=== PATIENT | female | born 1985 | race Caucasian/White ===

== ENCOUNTER 2021-02-07 08:23 | Day surgery (SDC) | payer OTHER, SELFPAY ==
[2021-02-06 13:13] VITALS: BMI 22.4
--- NOTE | 2021-02-07 08:41 | ANES.PREANE2 ---
Pre-Anesthetic Assessment Pre-Anesthetic Assessment: Height/Weight: Height 1.65 m Weight 61.235 kg Preop Diagnosis: gerd Proposed Procedure: Operation Date: 02/07/21 10:00 Proposed Procedures p EGD 55330 K21.9(Not Applicable) - Lex Bianchi MD Familial anesthetic complications: NOne Was Beta Marlene taken within 24 hours: N/A Was Clonidine taken within 24 hours: N/A Last intake: > 8 hrs Social: Social History: Alcohol and No tobacco Comment: glass of wine every other night Exam: Pre-Anes Outpt Exam: alert, oriented x 3, clear to auscultation bilaterally and regular rate & rhythm Airway: Cervical ROM: WNL MP: 2 Dentition: Full GI: GI: GERD and PUD Anesthetic Plan: ASA status: 1 Anesthesia: MAC Risk of > 500 ml blood loss (7ml/kg in children): No PFSH Anesthesia PFSH: Family History Grandmother CAD (coronary artery disease) Hypertension Stroke Family/Other Cancer Denies family history of Diabetes Social History Smoking and tobacco status: never smoked Alcohol intake: current Alcohol intake frequency: few times a week Lives independently: Yes Household members: children Female Reproductive History: Date of last menstrual period: 01/23/21 Data Anesthesia Cardiac Studies: No Data to Display
--- NOTE | 2021-02-07 10:10 | PC.NURSE ---
\neck and shoulder pain, rates 3, constant, goes to chiropractor, participates in yoga and meditation.
[2021-02-07] MEDS: sodium chloride 0.9% 1,000 ML 30 ML IV (10:29)
[2021-02-07 10:36] LABS: OR HCG Qualitative Urine Negative (Negative)
--- NOTE | 2021-02-07 10:41 | W.PM.OPSFHP ---
Same Day Surgery H&P Indication for Procedure/HPI DATE OF PROCEDURE: February 07, 2021 CHIEF COMPLAINT/INDICATIONFOR SURGICAL PROCEDURE: My matt magaña PREOP DIAGNOSIS: Anorexia and abdominal pain PLANNED PROCEDRUE: Operation Date: 02/07/21 10:00 Proposed Procedures p EGD 52601 K21.9(Not Applicable) - Lex Bianchi MD This is a pleasant 35 years old female patient presents to my practice with history of worsening Sharpepigastric pain that sometimes referred to the back and often times she reports chills, nausea and some vomiting but no hematemesis or bleeding per rectum. Seems that proton pump inhibitors helps some but not always. Patient reports that she never had endoscopies before and she was referred to me because of concern of peptic ulcer disease. Also patient reports that she has concern of history of celiac disease but that was not diagnosed based on biopsies. But she continues to be on a gluten-free diet and watches her food. Patient gives anorexic symptoms. She also reports to me that she has been moving and lifting a lot of objects and experiencing musculoskeletal pain which requires intake of NSAIDs but she was not aware if she did a lot of thatWhich could have precipitated a peptic ulcer disease. Interim history 02/07/2021 Patient comes today for diagnostic EGD ROS All systems have been reviewed negative except as per the above or per problem list Medications/Allergies* Home Medications Medication Instructions Recorded Confirmed Type norgestimate 0.25 mg-ethinyl 1 tab PO DAILY 12/28/20 02/06/21 History estradiol 35 mcg tablet omeprazole magnesium 2.5 mg oral 10 mg PO DAILY 12/28/20 02/06/21 History suspension,delayed release Allergies/Adverse Reactions Allergy/AdvReac Type Severity Reaction Status Date / Time gluten Allergy Mild muscle pain Verified 02/07/21 10:42 Current Medications: Generic Name Dose Route Start Last Admin Trade Name Freq PRN Reason Stop Dose Admin Sodium Chloride 1,000 mls @ 30 mls/hr 02/07/21 09:15 02/07/21 10:29 Sodium Chloride 0.9% IV 02/08/21 09:14 30 mls/hr .Q24H NITESH Administration Pertinent History/Comorbid Conditions* Family History (Updated 12/28/20 @ 14:54 by Sheridan Sanders) CAD (coronary artery disease) Grandmother Cancer Family/Other Hypertension Grandmother Stroke Grandmother Denies family history of Diabetes Social History Smoking and tobacco status: never smoked Alcohol intake: current Alcohol intake frequency: few times a week Lives independently: Yes Household members: children Pertinent Exam Findings alert, oriented x 3, clear to auscultation bilaterally, regular rate & rhythm and procedure specific exam findings (Abdominal examination less tender epigastric area otherwise soft no guardin) Recommendations Surgery/Procedure today (Diagnostic EGD) Other Plans: Plan of care; After thorough history and physical examination and reviewing the chart, plan to perform a diagnostic esophagogastroduodenoscopy with possible biopsy in the GI lab. I discussed with the patient in detail the risk,benefits,alternatives and indications.The risk of aspiration, bleeding, soft tissue injury, perforation of the stomach/esophagus and other potential concomitant complications were explained to the patient in details,aslo the potential need for Thoracic and or Abdominal surgery to repair any complications.The patient understood this well and did agree to proceed. Rationale was carefully and clearly discussed with the patient.Appropriate informed consent have been reviewed and signed All questions have been answered and all concerns have been addressed to patient's satisfaction. Coding Level of Care Code Acute Computational Physicist for Reese Ramos
[2021-02-07 11:37] VITALS: BP 112/62; PULSE 81; RESP 20; TEMP 36.4; O2SAT 99
--- NOTE | 2021-02-07 11:37 | ANE.PACU2 ---
Inpatient post-anesthesia follow up: Airway intact: Yes Vital signs: Temperature Pulse Rate Respiratory Rate Blood Pressure Pulse Oximetry Oxygen Delivery Me thod Oxygen Flow Rate Fraction of Inspir ed Oxygen Hydration adequate: Yes Nausea and vomiting: No Pain level: 1 Mental status: Baseline
[2021-02-07 11:49] VITALS: BP 109/73; PULSE 66; RESP 18; TEMP 36.7; O2SAT 99
[2021-02-08 06:30] LABS: H. Pylori / CLO Test Negative
== END 2021-02-07 12:13 | disposition home or self-care (01) ==
PROVIDERS: Anesthesiology; PCP Nurse Practitioner Family; Visit Provider Surgery
PROC: 0DJ08ZZ Inspection of Upper Intestinal Tract, Via Natural or Artificial Opening Endoscopic (ICD-10-PCS; CPT 43235; principal; 2021-02-07 10:00)
DX: R10.9 Unspecified abdominal pain (principal); R63.0 Anorexia; Z82.49 Family history of ischemic heart disease and other diseases of the circulatory system; K21.9 Gastro-esophageal reflux disease without esophagitis; K44.9 Diaphragmatic hernia without obstruction or gangrene; K29.70 Gastritis, unspecified, without bleeding; K22.8 Other specified diseases of esophagus; Z87.11 Personal history of peptic ulcer disease
CPT/HCPCS: 43239; 81025; 84703; 87077; 88305; 96360; 96361; J2704; J7030

== ENCOUNTER 2023-02-14 18:38 | Emergency (ER) | payer OTHER, SELFPAY ==
[2023-02-14 18:51] VITALS: BP 107/73; PULSE 88; RESP 16; TEMP 36.7; O2SAT 100
--- NOTE | 2023-02-14 18:55 | W.ED.PSYCHS ---
HPI - Psych General: Chief Complaint: Psychiatric Symptoms Stated Complaint: panic attacks, MHE Time Seen by Provider: 02/14/23 18:55 History of Present Illness: Ms. Arambula is a 38-year-old lady presented the emergency department for panic attack type symptoms. She does report a history of probable panic attacks and is currently on Celexa which had been helping. Lately though, without known specific provoking factors, she has had worsening symptoms. She describes to severe panic attacks over the past few days. She notes sudden onset of racing heart and pounding headache as well as vomiting and chest discomfort/shortness of breath. These typically last a few hours. Denies suicidal or homicidal thoughts. No other specific changes in health, exacerbating, or alleviating factors identified. History of same: Yes Associated psychiatric symptoms: other Review of Systems General: Reports: 10 or more systems reviewed and unremarkable except in HPI and below PFSH ED PFSH: Medical History Esophageal polyp Hiatal hernia Family History Grandmother CAD (coronary artery disease) Hypertension Stroke Family/Other Cancer Denies family history of Diabetes Social History Smoking and tobacco status: never smoked Alcohol intake: current Alcohol intake frequency: few times a week Substance/Drug Use: never Lives independently: Yes Household members: children Physical Exam Const: COMMON NORMALS: alert GENERAL APPEARANCE: cooperative and well developed HENMT: COMMON NORMALS: normocephalic and atraumatic HEAD & SCALP: normocephalic and atraumatic Eye: COMMON NORMALS: conjunctivae normal CONJUNCTIVA: Yes conjunctivae normal SCLERA: sclerae normal Neck/C-Spine: COMMON NORMALS: supple GENERAL: Yes trachea midline Resp: COMMON NORMALS: normal respiratory effort EFFORT & INSPECTION: Yes able to speak in complete sentences Cardio: COMMON NORMALS: regular rate and regular rhythm RATE: regular rate RHYTHM: regular rhythm GI: COMMON NORMALS: Soft to palpation PALPATION: Yes Soft to palpation and No Tenderness to palpation present (GI) PERCUSSION: normal to percussion Extremity: GENERAL: Yes normal exam except as noted and No edema Neuro: COMMON NORMALS: moves all extremities SENSORIUM/ORIENTATION: Yes alert and No Orientation impaired Psych: COMMON NORMALS: mental status grossly normal, Normal thought process present, denies hallucinations, denies homicidal ideation and denies suicidal ideation THOUGHT PROCESS: Normal thought process present Course Vital Signs: Vital signs: Vital Signs Temperature 98.0 F 02/14/23 18:51 Pulse Rate 88 02/14/23 18:51 Respiratory Rate 16 02/14/23 18:51 Blood Pressure 107/73 02/14/23 18:51 Pulse Oximetry 100 02/14/23 18:51 Oxygen Delivery Me thod Room Air 02/14/23 18:51 MDM - Psych Medical Decision Making 38-year-old lady presenting for likely panic attacks. Calm and cooperative. Nontoxic. EKG demonstrates sinus rhythm with normal axis and intervals, no STEMI. Labs with mild leukocytosis, normal hemoglobin and platelet count. Metabolic panel with perhaps mild dehydration. Toxic ingestions negative. Indication for imaging this time. I will prescribe hydroxyzine as first-line and clonazepam as second line. Patient does not feel the need to be hospitalized at this time. Not suicidal homicidal ideation. The results of ED evaluation were discussed with the patient including prescriptions and/or symptomatic cares (if applicable) including appropriate and responsible use, followup plan, and return precautions. The patient verbalized understanding and felt safe for discharge. Medical Records I reviewed the patient's medical records. Lab Data I reviewed the patient's lab results. 02/14/23 19:27 02/14/23 19: Laboratory Results WBC 12.4 10^3/uL (4.0-10.0) H 02/14/23 19: RBC 4.27 10^6/uL (4.1-5.3) 02/14/23 19: Hgb 12.6 g/dL (11.5-15.3) 02/14/23 19: Hct 39.4 % (37.0-47.0) 02/14/23 19: MCV 92.3 fl (81-99) 02/14/23 19: MCH 29.5 pg (28.0-34.0) 02/14/23 19: MCHC 32.0 g/dL (30.0-36.0) 02/14/23 19: RDW 11.8 % (12.1-15.1) L 02/14/23: Plt Count 230 10^3/cmm (130-400) 02/14/23 19: MPV 11.0 fL (7.4-10.4) H 02/14/23 19:27 Neut % (Auto) 75.0 % 02/14/23 19: Lymph % (Auto) 16.4 % 02/14/23 19: [place] % (Auto) 7.0 % 02/14/23 19: Eos % (Auto) 0.7 % 02/14/23 19: Baso % (Auto) 0.4 % 02/14/23: Neut # (Auto) 9.28 10^3/uL (1.8-7.7) H 02/14/23: Lymph # (Auto) 2.0 10^3/uL (0.8-4.8) 02/14/23: [place] # (Auto) 0.9 10^3/uL (0.2-0.9) 02/14/23: Eos # (Auto) 0.1 10^3/uL (0.0-0.8) 02/14/23: Baso # (Auto) 0.1 10^3/uL (0.0-0.1) 02/14/23: Nucleated RBC % (auto) 0 % 02/14/23: Nucleated RBCs # 0.0 /100WBC 02/14/23: Sodium 133 mmol/L (136-145) L 02/14/23: Potassium 4.0 mmol/L (3.5-5.1) 02/14/23: Chloride 101 mmol/L (98-107) 02/14/23: Carbon Dioxide 23 mmol/L (22-29) 02/14/23: Anion Gap 13.0 (5-19) 02/14/23: BUN 12 mg/dL (6-20) 02/14/23: Creatinine 0.7 mg/dL (0.5-0.9) 02/14/23: GFR Calculation 94.2 mL/min (90-130) 02/14/23: Glucose 107 mg/dL (65-115) 02/14/23 19:27 Calculated Osmolality 276 mOsm/kg (285-295) L 02/14/23 19:27 Calcium 8.6 mg/dL (8.5-10.5) 02/14/23 19:27 Total Bilirubin 0.2 mg/dL (0.15-1.2) 02/14/23 19:27 AST 21 U/L (0-32) 02/14/23 19:27 ALT 22 U/L (0-33) 02/14/23 19:27 Alkaline Phosphatase 45 U/L (35-105) 02/14/23 19:27 Total Protein 6.3 g/dL (6.6-8.7) L 02/14/23 19:27 Albumin 4.0 g/dL (3.5-5.2) 02/14/23 19:27 Globulin 2.3 g/dL (1.3-4.6) 02/14/23 19:27 TSH 3.09 uIU/mL (0.27-4.20) 02/14/23 19:27 Salicylates < 0.3 mg/dL (3-10) L 02/14/23 19:27 Acetaminophen 6.5 ug/mL (10-30) L 02/14/23 19:27 Ethyl Alcohol < 10 mg/dL (0-10) 02/14/23 19:27 Discharge Plan Discharge Patient Disposition: Home Clinical Impression: Acute anxiety, Panic disorder Condition: Stable Prescriptions: New hydroxyzine HCl 25 mg tablet 25 mg PO Q6H PRN (Reason: anxiety) Qty: 30 0RF Klonopin 0.5 mg tablet 0.5 mg PO Q8H PRN (Reason: anxiety) Qty: 20 0RF No Action norgestimate-ethinyl estradiol [Sprintec (28)] 0.25-35 mg-mcg tablet 1 tab PO DAILY Protonix 40 mg tablet,delayed release (DR/EC) 40 mg PO DAILY 30 Days Qty: 30 2RF Discharge Orders: Discharge ED (Routine); Ordered 02/14/23 Ordered By: Maximiliano Friend Referrals: Chio Gauthier, INSTRUMENT TECHNICIAN HELPER [Primary Care Provider] - Discharge Diet: Usual diet Discharge Activity: Resume usual activity Patient Instructions: Clonazepam (By mouth), Hydroxyzine (By mouth), Panic Attack (ED) Activity Restrictions/Additional Instructions: Thank you for visiting the emergency department. You were seen and evaluated for likely panic attacks. The exact cause of these is unclear however does not appear to need hospitalization at this time. I will prescribe hydroxyzine as a first-line treatment and clonazepam as second line. Use these cautiously as discussed. [facility] [phone] If you or someone you care for is experiencing a psychiatric emergency, please call the crisis hotline ([email or web address]) 24-hours a day, 7 days a week at [phone]. The crisis stabilization center is located on the south side ([address]) of the hospital campus and has walk-in hours 11 AM to 9 PM daily. Please follow-up with your primary care provider. Return to the emergency department for uncontrolled symptoms, suicidal or homicidal thoughts, or anything that you are concerned about and feel needs emergency department evaluation. Coding Level of Care Code ED Supervisor [employer] for Reese Ramos
--- NOTE | 2023-02-14 19:09 | ECG_ITS ---
[facility] Test Date: 2023-02-14 Pat Name: Padma Arambula Department: Room: Gender: Female Cook Helper Preserves: : 1985 Requested By: Maximiliano Friend Order Number: [id number] Ramakrishna MD: Davie Acharya M.D. Measurements Intervals [place] Rate: 77 P: 73 WA: 130 QRS: 81 QRSD: 88 T: 62 QT: 373 QTc: 423 Interpretive Statements SINUS RHYTHM POSSIBLE LEFT ATRIAL ENLARGEMENT [-0.1mV P-WAVE IN V1/V2] MODERATE ST DEPRESSION [0.05+ mV ST DEPRESSION] No previous ECG available for comparison Electronically Signed On 02-15-2023 10:24:43 CDT by Davie Acharya M.D. [email or web address]
[2023-02-14 19:42] LABS: Basophils # 0.1 10^3/uL (0.0-0.1); Basophils % 0.4 %; Eosinophils # 0.1 10^3/uL (0.0-0.8); Eosinophils % 0.7 %; Hematocrit 39.4 % (37.0-47.0); Hemoglobin 12.6 g/dL (11.5-15.3); Lymphocytes % 16.4 %; Mean Corpuscular Hemoglobin 29.5 pg (28.0-34.0); Mean Corpuscular Volume 92.3 fl (81-99); Monocytes # 0.9 10^3/uL (0.2-0.9); Neutrophils # 9.28 10^3/uL (1.8-7.7); Nucleated Red Blood Cells % 0 %; Platelet Count 230 10^3/cmm (130-400); Red Blood Count 4.27 10^6/uL (4.1-5.3); Red Cell Distribution Width 11.8 % (12.1-15.1); White Blood Count 12.4 10^3/uL (4.0-10.0)
[2023-02-14 20:11] LABS: Acetaminophen 6.5 ug/mL (10-30); Alanine Aminotransferase 22 U/L (0-33); Alcohol Level < 10 mg/dL (0-10); Alkaline Phosphatase 45 U/L (35-105); Aspartate Amino Transferase 21 U/L (0-32); Blood Urea Nitrogen 12 mg/dL (6-20); Calcium 8.6 mg/dL (8.5-10.5); Carbon Dioxide 23 mmol/L (22-29); Chloride 101 mmol/L (98-107); Globulin 2.3 g/dL (1.3-4.6); Glomerular Filtration Rate 94.2 mL/min (90-130); Glucose 107 mg/dL (65-115); Osmolality Calculated 276 mOsm/kg (285-295); Salicylate < 0.3 mg/dL (3-10); Sodium 133 mmol/L (136-145); Thyroid Stimulating Hormone 3.09 uIU/mL (0.27-4.20); Total Bilirubin 0.2 mg/dL (0.15-1.2); Total Protein 6.3 g/dL (6.6-8.7)
== END 2023-02-14 21:00 | disposition home or self-care (01) ==
PROVIDERS: Emergency Provider Emergency Medicine; PCP Nurse Practitioner Family
DX: F41.0 Panic disorder [episodic paroxysmal anxiety] (principal); F41.9 Anxiety disorder, unspecified
CPT/HCPCS: 36415; 80053; 80307; 84443; 85025; 93005; 99284

== ENCOUNTER 2023-02-19 10:57 | Outpatient (CLI) | payer OTHER, SELFPAY ==
--- NOTE | 2023-02-19 11:07 | XRR_ITS ---
PROCEDURE INFORMATION: Exam: XR Cervical Spine Exam date and time: 02/19/2023 11:16 AM Age: 38 years old Clinical indication: Pain; Cervicalgia; Additional info: Cervicalgia/headache TECHNIQUE: Imaging protocol: Radiologic exam of the cervical spine. Views: 6 or more views. COMPARISON: No relevant prior studies available. FINDINGS: Bones/joints: Normal. No acute fracture. Normal alignment. The examination is negative for instability with flexion and extension maneuvers. Soft tissues: Unremarkable. XR/XR cervical spine min 6V [id number] IMPRESSION: No acute findings. Negative for instability with flexion and extension
== END 2023-02-19 10:58 | disposition home or self-care (01) ==
PROVIDERS: PCP Nurse Practitioner Family; Visit Provider Nurse Practitioner Family
DX: R51.9 Headache, unspecified (principal)
CPT/HCPCS: 72052

== ENCOUNTER 2023-03-07 11:29 | Emergency (ER) | payer OTHER, SELFPAY ==
[2023-03-07] VITALS (14 sets, daily range): BP systolic 95–143; BP diastolic 67–92; PULSE 61–96; RESP 13–25; TEMP 36.7; O2SAT 96–100; BMI 23.3
--- NOTE | 2023-03-07 11:30 | ED_ITS ---
Documented by User: Brown Peterson DO 03/09/23 08:07 HPI - Headache General: Chief Complaint: Headache Stated Complaint: headache Time Seen by Provider: 03/07/23 11:29 Source: patient Mode of arrival: EMS History of Present Illness: 38-year-old female presents emergency room complaining primarily of headache. She is also had a little difficult time with her swallowing and she has noticed some double vision the double vision seems to come and go she has had some mild dizziness as well. Dizziness slightly worsened when she moves her head. She is somewhat nauseous. She has difficult time at times swallowing saliva. She is not previously had headaches like this before. No fever sweats or chills recently no head injury. Began a few hours ago. She is also intermittently noticed some odd sensation in her left arm. MD elicited complaint: headache Onset (ago): hour(s) Onset description: gradually Location: other (Diffuse) Severity: moderate Quality & Timing: aching Exacerbating factors: none Relieving factors: nothing Associated symptoms: Reports lightheadedness and nausea; Deny chest pain, confusion, cough, diaphoresis, eye pain, eye redness, fever(s), loss of vision, malaise, neck stiffness, numbness, paresthesias, photophobia, pre-syncope, rash, seizures, short of breath, sound sensitivity, syncope, vomiting or weakness Review of Systems Const: Denies: fever(s), chills, body aches, change in appetite, fatigue, malaise or diaphoresis Eyes: Reports: change in vision and blurry vision ENMT: Denies: throat pain, odynophagia, hoarseness, ear or mastoid pain, nasal discharge or nasal congestion Card: Reports: lightheadedness; Denies: chest pain, edema, syncope, pre-syncope, dyspnea on exertion or orthopnea Resp: Denies: dyspnea, productive cough or non-productive cough GI: Reports: nausea; Denies: abdominal pain, vomiting, hematemesis, coffee ground emesis, diarrhea, constipation, bloating, hematochezia or melena : Denies: flank pain, difficulty voiding, dysuria, urinary frequency or urinary urgency Skin/Breast: Denies: rash or pruritus Neuro: Reports: headache(s), sensory changes (Left arm) and dizziness; Denies: lack of coordination, difficulty walking, confusion, Slurred speech present or difficulty communicating thoughts PFSH ED PFSH: Medical History Esophageal polyp Hiatal hernia Family History Grandmother CAD (coronary artery disease) Hypertension Stroke Family/Other Cancer Denies family history of Diabetes Social History Smoking and tobacco status: never smoked Alcohol intake: current Alcohol intake frequency: few times a week Substance/Drug Use: never Lives independently: Yes Household members: children Physical Exam Const: GENERAL APPEARANCE: cooperative and comfortable ORIENTATION/CONSCIOUSNESS: Yes awake, Yes oriented to person, Yes oriented to place and Yes oriented to time HENMT: COMMON NORMALS: normocephalic, atraumatic and hearing grossly normal bilaterally HEAD & SCALP: normocephalic and atraumatic Eye: COMMON NORMALS: Equal, round and reactive pupils present PUPIL: Yes Equal, round and reactive pupils present EOM: Yes Nystagmus present Nystagmus Noted: positive vertical, positive with right lateral gaze and positive with left lateral gaze DIRECT OPHTHALMOSCOPY: No photophobia Neck/C-Spine: COMMON NORMALS: full ROM, no lymphadenopathy, supple and no meni ngeal signs Resp: COMMON NORMALS: normal respiratory effort, No retractions, No use of accessory muscles and clear to auscultation bilaterally AUSCULTATION: clear to auscultation bilaterally Cardio: COMMON NORMALS: regular rate, regular rhythm and No murmurs present (Cardio) RATE: regular rate RHYTHM: regular rhythm GI: COMMON NORMALS: Soft to palpation and No hepatosplenomegaly present AUSCULTATION: Yes normoactive bowel sounds PALPATION: Yes Soft to palpation, No Tenderness to palpation present (GI), No Guarding due to palpation present (GI) and Yes No hepatosplenomegaly present Extremity: COMMON NORMALS: normal to inspection, capillary refill normal, no clubbing, cyanosis or edema, no calf tenderness and no pedal edema Neuro: SENSORIUM/ORIENTATION: Yes oriented to person, Yes oriented to place and Yes oriented to time MENINGEAL SIGNS: Yes no meningeal signs Skin: COMMON NORMALS: no rashes or lesions noted GENERAL SKIN EXAM: no rashes or lesions noted Course Vital Signs: Vital signs: Vital Signs Temperature 98.0 F 03/07/23 11:31 Pulse Rate 96 03/07/23 23:13 Respiratory Rate 13 03/07/23 20:30 Blood Pressure 134/87 03/07/23 23:13 Pulse Oximetry 97 03/07/23 23:13 Oxygen Delivery Me thod Room Air 03/07/23 21:30 MDM - Headache Medical Decision Making Initially patient's main complaint seem to be a headache and blurry vision Treated her headache which did not improve CT head was unremarkable she was noted to have a normal NIH score initially and on repeat exam but she did have nystagmus. She complained of some variation in sensation in the left arm but when tested was equal. She also the difficulty swallowing and the intermittent dizziness dizziness and headache improved with treatment. After reassessment several times we did decide to go ahead and get an MRI there is a question of a pontine stroke. Discussed with the radiologist rather subtle finding. Her risk factors would be the contraceptives. Discussed with Dr. Smith she recommends vascular studies including MRA or CTA. We will consult [facility] for further recommendations. Dr. Smith advised if they would receive her on transfer that may be best option. We also discussed with hospitalist service the requested input from neurology and also wish to consider MRV. Care signed out to Dr. Matthews at change of shift. See final notes for diagnosis and disposition. 38-year-old female recently seen by Dr. Keen. She was checked out to me at shift change. This lady complains of balance problems, worse with position change, generalized blurry vision, some generalized weakness, and trouble swallowing. She is also had a headache. The symptoms are more than 24 hours old, having started sometime yesterday. Her NIH scale is 0. Symptoms somewhat improved transiently with administration of Toradol and promethazine, but did not resolve. Head CT was negative. Because of concern of continued symptoms, especially with trouble with secretions she was having by history in terms of swallowing, MRI of the head was ordered. It shows a diffusion weighted imaging abnormality in the midline inferior kirby. Dr. Keen had spoken with our hospitalist service, and they were concerned about whether a MRV may be needed due to the patient's history of being on control. They requested neurology consultation. I spoke with our telestroke team, on-call neurology at [facility] in [place]. Recommendations were no MRV, but to monitor symptoms. He wished to evaluate the patient, but due to technical difficulties, our telestroke system seems to be down. He therefore requested her transfer to [facility] for evaluation. We are awaiting a bed. The patient's symptoms remained stable. Called to the bedside later to reexamine the patient, given a complaint of visual symptoms possibly worsening. On my examination, the patient has vertical nystagmus. To my knowledge, this is a new finding. On [id number], the patient has trouble with her left side. This does not seem to be due to wea nicholas, she does not have a significant pronator drift. She is given IV Depacon to see if this helps improve her symptoms. We have obtained a bed number from [facility]. Given the long transfer time, over 3-1/2 hours by ground, and continued to possibly worsening neuro symptoms, felt necessary to have the patient arrive as soon as possible. We have cleared weather, and will transfer by air ambulance. Lack of ground EMS resources and potential further delay of care have also necessitated this type of transfer. Medical Records I reviewed the patient's medical records. Lab Data I reviewed the patient's lab results. 03/07/23 11:39 03/07/23 11:[address] 03/07/23 11:35 IMPRESSION: 1. No evidence of intracranial hemorrhage or mass effect 2. No acute intracranial findings. Head MRI 03/07/23 15:54 IMPRESSION: Subtle DWI signal in the midline inferior kirby may represent small acute infarct. ADDENDUM: 03/07/23 1802 THIS REPORT CONTAINS FINDINGS THAT MAY BE CRITICAL TO PATIENT CARE. The findings were verbally communicated via telephone conference with BROWN PETERSON at 6:01 PM CDT on 03/07/2023. The findings were acknowledged and understood. Laboratory Results WBC 8.7 10^3/uL (4.0-10.0) 03/07/23 11:39 RBC 4.86 10^6/uL (4.1-5.3) 03/07/23 11:39 Hgb 14.5 g/dL (11.5-15.3) 03/07/23 11:39 Hct 43.6 % (37.0-47.0) 03/07/23 11:39 MCV 89.7 fl (81-99) 03/07/23 11:39 MCH 29.8 pg (28.0-34.0) 03/07/23 11:39 MCHC 33.3 g/dL (30.0-36.0) 03/07/23 11:39 RDW 11.8 % (12.1-15.1) L 03/07/23 11:39 Plt Count 306 10^3/cmm (130-400) 03/07/23 11:39 MPV 10.9 fL (7.4-10.4) H 03/07/23 11:39 Neut % (Auto) 49.8 % 03/07/23 11:39 Lymph % (Auto) 39.4 % 03/07/23 11:39 [place] % (Auto) 8.1 % 03/07/23 11:39 Eos % (Auto) 1.8 % 03/07/23 11:39 Baso % (Auto) 0.6 % 03/07/23 11:39 Neut # (Auto) 4.35 10^3/uL (1.8-7.7) 03/07/23 11:39 Lymph # (Auto) 3.4 10^3/uL (0.8-4.8) 03/07/23 11:39 [place] # (Auto) 0.7 10^3/uL (0.2-0.9) 03/07/23 11:39 Eos # (Auto) 0.2 10^3/uL (0.0-0.8) 03/07/23 11:39 Baso # (Auto) 0.1 10^3/uL (0.0-0.1) 03/07/23 11:39 Nucleated RBC % (auto) 0 % 03/07/23 11:39 Nucleated RBCs # 0.0 /100WBC 03/07/23 11:39 Sodium 137 mmol/L (136-145) 03/07/23 11:39 Potassium 3.7 mmol/L (3.5-5.1) 03/07/23 11:39 Chloride 100 mmol/L (98-107) 03/07/23 11:39 Carbon Dioxide 21 mmol/L (22-29) L 03/07/23 11:39 Anion Gap 19.7 (5-19) H 03/07/23 11:39 BUN 9 mg/dL (6-20) 03/07/23 11:39 Creatinine 0.6 mg/dL (0.5-0.9) 03/07/23 11:39 GFR Calculation 112.5 mL/min (90-130) 03/07/23 11:39 Glucose 84 mg/dL (65-115) 03/07/23 11:39 Calculated Osmolality 282 mOsm/kg (285-295) L 03/07/23 11:39 Calcium 9.5 mg/dL (8.5-10.5) 03/07/23 11:39 Total Bilirubin 0.5 mg/dL (0.15-1.2) 03/07/23 11:39 AST 19 U/L (0-32) 03/07/23 11:39 ALT 17 U/L (0-33) 03/07/23 11:39 Alkaline Phosphatase 50 U/L (35-105) 03/07/23 11:39 Total Protein 7.4 g/dL (6.6-8.7) 03/07/23 11:39 Albumin 4.6 g/dL (3.5-5.2) 03/07/23 11:39 Globulin 2.8 g/dL (1.3-4.6) 03/07/23 11:39 HCG, Qual Negative (Negative) 03/07/23 11:39 Urine Color Yellow (Yellow) 03/07/23 12:45 Urine Appearance Cloudy (CLEAR) A 03/07/23 12:45 Urine pH 9 (5-7) H 03/07/23 12:45 Ur Specific [place] 1.010 (1.005-1.030) 03/07/23 12:45 Urine Protein Neg (Negative) 03/07/23 12:45 Urine Glucose (UA) Norm (Normal) 03/07/23 12:45 Urine Ketones 2+ (Negative) H 03/07/23 12:45 Urine Blood Neg (Negative) 03/07/23 12:45 Urine Nitrate Negative (Negative) 03/07/23 12:45 Urine Bilirubin Neg (Negative) 03/07/23 12:45 Prot Sulfosalicylic Acd Negative (Negative) 03/07/23 12:45 Urine Urobilinogen Norm mg/dL (Negative) 03/07/23 12:45 Ur Leukocyte Esterase 1+ (Negative) H 03/07/23 12:45 Urine RBC 0-4 /hpf (0-2) H 03/07/23 12:45 Urine WBC 55-80 /hpf (0-5) H 03/07/23 12:45 Ur Squamous Epith Cells 40-55 /hpf (0-5) H 03/07/23 12:45 Amorphous Sediment Not Reportable 03/07/23 12:45 Urine Bacteria 2+ /hpf (NONE) H 03/07/23 12:45 Discharge Plan Discharge Patient Disposition: Xfer Short-Term Hosp Clinical Impression: Headache, Dysphagia Condition: Fair Referrals: Chio Gauthier FNP [Primary Care Provider] - Coding Level of Care Code ED Care Transition Manager for Chg Fwd NIH stroke score NIHSS Level Of Consciousness - 1a: 0 Level Of Consciousness Questions - 1b: Both Correct Level Of Consciousness Commands - 1c: Both Correct Best Gaze - 2: Normal Visual [place] - 3: No Visual Loss Facial Palsy - 4: Normal Motor Arm Right - 5: No Drift Motor Arm Left - 5: No Drift Motor Leg Right - 6: No Drift Motor Leg Left - 6: No Drift Limb Ataxia - 7: Absent Sensory - 8: Normal Best Language - 9: No Aphasia Dysarthia - 10: Normal Extinction And Inattention - 11: 0 Score Total Score: 0 Documented by User: Grant Matthews DO 03/07/23 22:45 HPI - Headache General: Chief Complaint: Headache Stated Complaint: headache Time Seen by Provider: 03/07/23 11:29 History of Present Illness: 38-year-old female previously seen by Dr. Keen. This lady complains of headache, trouble with balance, trouble swallowing, and vision changes that started sometime yesterday. PFSH ED PFSH: Medical History Esophageal polyp Hiatal hernia Family History Grandmother CAD (coronary artery disease) Hypertension Stroke Family/Other Cancer Denies family history of Diabetes Social History Smoking and tobacco status: never smoked Alcohol intake: current Alcohol intake frequency: few times a week Substance/Drug Use: never Lives independently: Yes Household members: children Course Vital Signs: Vital signs: Vital Signs Temperature 98.0 F 03/07/23 11:31 Pulse Rate 96 03/07/23 23:13 Respiratory Rate 13 03/07/23 20:30 Blood Pressure 134/87 03/07/23 23:13 Pulse Oximetry 97 03/07/23 23:13 Oxygen Delivery Me thod Room Air 03/07/23 21:30 MDM - Headache Medical Decision Making 38-year-old female recently seen by Dr. Keen. She was checked out to me at shift change. This lady complains of balance problems, worse with position change, generalized blurry vision, some generalized weakness, and trouble swallowing. She is also had a headache. The symptoms are more than 24 hours old, having started sometime yesterday. Her NIH scale is 0. Symptoms somewhat improved transiently with administration of Toradol and promethazine, but did not resolve. Head CT was negative. Because of concern of continued symptoms, especially with trouble with secretions she was having by history in terms of swallowing, MRI of the head was ordered. It shows a diffusion weighted imaging abnormality in the midline inferior kirby. Dr. Keen had spoken with our hospitalist service, and they were concerned about whether a MRV may be needed due to the patient's history of being on control. They requested neurology consultation. I spoke with our telestroke team, on-call neurology at [facility] in [place]. Recommendations were no MRV, but to monitor symptoms. He wished to evaluate the patient, but due to technical difficulties, our telestroke system seems to be down. He therefore requested her transfer to [facility] for evaluation. We are awaiting a bed. The patient's symptoms remained stable. Called to the bedside later to reexamine the patient, given a complaint of visual symptoms possibly worsening. On my examination, the patient has vertical nystagmus. To my knowledge, this is a new finding. On [id number], the patient has trouble with her left side. This does not seem to be due to weakness, she does not have a significant pronator drift. She is given IV Depacon to see if this helps improve her symptoms. We have obtained a bed number from [facility]. Given the long transfer time, over 3-1/2 hours by ground, and continued to possibly worsening neuro symptoms, felt necessary to have the patient arrive as soon as possible. We have cleared weather, and will transfer by air ambulance. Lack of ground EMS resources and potential further delay of care have also necessitated this type of transfer. Lab Data 03/07/23 11:39 03/07/23 11:[address] 03/07/23 11:35 IMPRESSION: 1. No evidence of intracranial hemorrhage or mass effect 2. No acute intracranial findings. Head MRI 03/07/23 15:54 IMPRESSION: Subtle DWI signal in the midline inferior kirby may represent small acute infarct. ADDENDUM: 03/07/23 0165 THIS REPORT CONTAINS FINDINGS THAT MAY BE CRITICAL TO PATIENT CARE. The findings were verbally communicated via telephone conference with BROWN PETERSON at 6:01 PM CDT on 03/07/2023. The findings were acknowledged and understood. Laboratory Results WBC 8.7 10^3/uL (4.0-10.0) 03/07/23 11:39 RBC 4.86 10^6/uL (4.1-5.3) 03/07/23 11:39 Hgb 14.5 g/dL (11.5-15.3) 03/07/23 11:39 Hct 43.6 % (37.0-47.0) 03/07/23 11:39 MCV 89.7 fl (81-99) 03/07/23 11:39 MCH 29.8 pg (28.0-34.0) 03/07/23 11:39 MCHC 33.3 g/dL (30.0-36.0) 03/07/23 11:39 RDW 11.8 % (12.1-15.1) L 03/07/23 11:39 Plt Count 306 10^3/cmm (130-400) 03/07/23 11:39 MPV 10.9 fL (7.4-10.4) H 03/07/23 11:39 Neut % (Auto) 49.8 % 03/07/23 11:39 Lymph % (Auto) 39.4 % 03/07/23 11:39 [place] % (Auto) 8.1 % 03/07/23 11:39 Eos % (Auto) 1.8 % 03/07/23 11:39 Baso % (Auto) 0.6 % 03/07/23 11:39 Neut # (Auto) 4.35 10^3/uL (1.8-7.7) 03/07/23 11:39 Lymph # (Auto) 3.4 10^3/uL (0.8-4.8) 03/07/23 11:39 [place] # (Auto) 0.7 10^3/uL (0.2-0.9) 03/07/23 11:39 Eos # (Auto) 0.2 10^3/uL (0.0-0.8) 03/07/23 11:39 Baso # (Auto) 0.1 10^3/uL (0.0-0.1) 03/07/23 11:39 Nucleated RBC % (auto) 0 % 03/07/23 11:39 Nucleated RBCs # 0.0 /100WBC 03/07/23 11:39 Sodium 137 mmol/L (136-145) 03/07/23 11:39 Potassium 3.7 mmol/L (3.5-5.1) 03/07/23 11:39 Chloride 100 mmol/L (98-107) 03/07/23 11:39 Carbon Dioxide 21 mmol/L (22-29) L 03/07/23 11:39 Anion Gap 19.7 (5-19) H 03/07/23 11:39 BUN 9 mg/dL (6-20) 03/07/23 11:39 Creatinine 0.6 mg/dL (0.5-0.9) 03/07/23 11:39 GFR Calculation 112.5 mL/min (90-130) 03/07/23 11:39 Glucose 84 mg/dL (65-115) 03/07/23 11:39 Calculated Osmolality 282 mOsm/kg (285-295) L 03/07/23 11:39 Calcium 9.5 mg/dL (8.5-10.5) 03/07/23 11:39 Total Bilirubin 0.5 mg/dL (0.15-1.2) 03/07/23 11:39 AST 19 U/L (0-32) 03/07/23 11:39 ALT 17 U/L (0-33) 03/07/23 11:39 Alkaline Phosphatase 50 U/L (35-105) 03/07/23 11:39 Total Protein 7.4 g/dL (6.6-8.7) 03/07/23 11:39 Albumin 4.6 g/dL (3.5-5.2) 03/07/23 11:39 Globulin 2.8 g/dL (1.3-4.6) 03/07/23 11:39 HCG, Qual Negative (Negative) 03/07/23 11:39 Urine Color Yellow (Yellow) 03/07/23 12:45 Urine Appearance Cloudy (CLEAR) A 03/07/23 12:45 Urine pH 9 (5-7) H 03/07/23 12:45 Ur Specific [place] 1.010 (1.005-1.030) 03/07/23 12:45 Urine Protein Neg (Negative) 03/07/23 12:45 Urine Glucose (UA) Norm (Normal) 03/07/23 12:45 Urine Ketones 2+ (Negative) H 03/07/23 12:45 Urine Blood Neg (Negative) 03/07/23 12:45 Urine Nitrate Negative (Negative) 03/07/23 12:45 Urine Bilirubin Neg (Negative) 03/07/23 12:45 Prot Sulfosalicylic Acd Negative (Negative) 03/07/23 12:45 Urine Urobilinogen Norm mg/dL (Negative) 03/07/23 12:45 Ur Leukocyte Esterase 1+ (Negative) H 03/07/23 12:45 Urine RBC 0-4 /hpf (0-2) H 03/07/23 12:45 Urine WBC 55-80 /hpf (0-5) H 03/07/23 12:45 Ur Squamous Epith Cells 40-55 /hpf (0-5) H 03/07/23 12:45 Amorphous Sediment Not Reportable 03/07/23 12:45 Urine Bacteria 2+ /hpf (NONE) H 03/07/23 12:45 Discharge Plan Discharge Patient Disposition: Xfer Short-Term Hosp Clinical Impression: Headache, Dysphagia Condition: Fair Referrals: Chio Gauthier FNP [Primary Care Provider] - Coding Level of Care Code ED Care Transition Manager for Reese Ramos NIH stroke score Score Total Score: 0
--- NOTE | 2023-03-07 11:35 | CT_ITS ---
WS: [id number] CT HEAD TECHNIQUE: Noncontrast CT of the head obtained from the skullbase to the vertex. CLINICAL INFORMATION: headache COMPARISON: None. DLP: 1043.[address] scans at [facility] use at least one of these dose optimization techniques: automated e xposure control; mA and/or kV adjustment per patient size (includes targeted exams where dose is matc hed to clinical indication); or iterative reconstruction. FINDINGS: No evidence of intracranial hemorrhage or mass effect. Ventricular system and basal cisterns are billy nt. No extra-axial fluid collections. No evidence of mass or mass effect. Normal magallanes-white different iation. Paranasal sinuses and mastoid air cells are well aerated. .Normal visualized soft tissues. CT/CT head wo con* [id number] IMPRESSION: 1. No evidence of intracranial hemorrhage or mass effect 2. No acute intracranial findings.
[2023-03-07 11:50] LABS: Basophils # 0.1 10^3/uL (0.0-0.1); Basophils % 0.6 %; Eosinophils # 0.2 10^3/uL (0.0-0.8); Eosinophils % 1.8 %; Hematocrit 43.6 % (37.0-47.0); Hemoglobin 14.5 g/dL (11.5-15.3); Lymphocytes # 3.4 10^3/uL (0.8-4.8); Lymphocytes % 39.4 %; Mean Corpuscular HGB Conc 33.3 g/dL (30.0-36.0); Mean Corpuscular Hemoglobin 29.8 pg (28.0-34.0); Mean Corpuscular Volume 89.7 fl (81-99); Mean Platelet Volume 10.9 fL (7.4-10.4); Monocytes # 0.7 10^3/uL (0.2-0.9); Monocytes % 8.1 %; Neutrophils # 4.35 10^3/uL (1.8-7.7); Neutrophils % 49.8 %; Nucleated Red Blood Cells % 0 %; Platelet Count 306 10^3/cmm (130-400); Red Blood Count 4.86 10^6/uL (4.1-5.3); Red Cell Distribution Width 11.8 % (12.1-15.1); White Blood Count 8.7 10^3/uL (4.0-10.0)
[2023-03-07] MEDS: ketorolac 30 mg/mL INJ IVP (12:04)
[2023-03-07 12:05] LABS: HCG, Serum Qual Negative (Negative)
[2023-03-07] MEDS: sodium chloride 0.9% 1,000 ML 999 ML IV (12:05)
[2023-03-07 12:09] LABS: Alanine Aminotransferase 17 U/L (0-33); Albumin Level 4.6 g/dL (3.5-5.2); Alkaline Phosphatase 50 U/L (35-105); Aspartate Amino Transferase 19 U/L (0-32); Blood Urea Nitrogen 9 mg/dL (6-20); Calcium 9.5 mg/dL (8.5-10.5); Carbon Dioxide 21 mmol/L (22-29); Chloride 100 mmol/L (98-107); Globulin 2.8 g/dL (1.3-4.6); Glomerular Filtration Rate 112.5 mL/min (90-130); Glucose 84 mg/dL (65-115); Osmolality Calculated 282 mOsm/kg (285-295); Sodium 137 mmol/L (136-145); Total Bilirubin 0.5 mg/dL (0.15-1.2); Total Protein 7.4 g/dL (6.6-8.7)
--- NOTE | 2023-03-07 12:10 | PC.NURSE ---
PT REQUESTED TO HOLD PROMETHAZINE. PT STATES I AM NOT THAT NAUSEAS RIGHT NOW.
[2023-03-07 12:14] LABS: Anion Gap 19.7 (5-19); Potassium 3.7 mmol/L (3.5-5.1)
[2023-03-07 13:20] LABS: Urine Appearance Cloudy (CLEAR); Urine Color Yellow (Yellow); pH Urine 9 (5-7)
[2023-03-07 13:21] LABS: Add Urine Microscopic? YES; Bacteria Urine 2+ /hpf; Bilirubin Urine Neg (Negative); Blood Urine Neg (Negative); Glucose Urine UA Norm (Normal); Ketones Urine 2+ (Negative); Leukocyte Esterase Urine 1+ (Negative); Nitrate Urine Negative (Negative); Protein Urine Neg (Negative); RBC Urine 0-4 /hpf (0-2); Squamous Epithelial Cell Urine 40-55 /hpf (0-5); Sulfosalicylic Acid Urine Negative (Negative); Urobilinogen Urine Norm (Negative); WBC Urine 55-80 /hpf (0-5)
[2023-03-07 13:22] LABS: Add Urine Culture? No
[2023-03-07] MEDS: promethazine 25 mg/mL SDV 1 mL IM (13:31)
[2023-03-07] MEDS: LORazepam 2 mg/mL INJ 1 mL IVP (14:24)
--- NOTE | 2023-03-07 15:54 | MRR_ITS ---
PROCEDURE INFORMATION: Exam: MR Head Without Contrast Exam date and time: 03/07/2023 4:30 PM Age: 38 years old Clinical indication: Visual disturbance; Additional info: Vision changes, dysphagia TECHNIQUE: Imaging protocol: Magnetic resonance imaging of the head without contrast. COMPARISON: CT head wo con* [id number] 03/07/2023 12:23 PM FINDINGS: Brain: Subtle DWI signal in the midline inferior kirby with ADC signal may represent acute infarct. No abnormal enhancement. Cerebral ventricles: Normal. No ventriculomegaly. Bones/joints: Unremarkable. Paranasal sinuses: Normal as visualized. No acute sinusitis. Mastoid air cells: Normal as visualized. No mastoid effusion. Orbital cavities: Unremarkable. Soft tissues: Unremarkable. MR/MR head wo/w con [id number] IMPRESSION: Subtle DWI signal in the midline inferior kirby may represent small acute infarct.
[2023-03-07] MEDS: gadobenate dimeglumine 20 mL vial IV (17:19)
--- NOTE | 2023-03-07 18:29 | PC.NURSE ---
PT PLACED ON CONTINUOUS NIBP, SPO2, AND CM
--- NOTE | 2023-03-07 18:30 | PC.NURSE ---
NO ASYMMETRY NOTED TO PT FACE. NO SLURRED SPEECH NOTED. PT SWALLOWED DRINK OF WATER WITH NO VOICE CHANGE, COUGH, OR CLEARING OF THE THROAT.
[2023-03-07] MEDS: cefTRIAXone 1,000 MG in sodium chloride 0.9% (plus) 50 ML 100 MG IV (19:33)
--- NOTE | 2023-03-07 19:40 | PC.NURSE ---
Triage report given to Gita at this time
[2023-03-07] MEDS: valproic acid inj 500 MG in sodium chloride 0.9% 50 ML 55 MG IV (21:58)
== END 2023-03-07 23:20 | disposition short-term general hospital (02) ==
PROVIDERS: Family Medicine; Emergency Provider Emergency Medicine; PCP Nurse Practitioner Family
DX: R51.9 Headache, unspecified (principal); R13.10 Dysphagia, unspecified; H55.00 Unspecified nystagmus; R29.818 Other symptoms and signs involving the nervous system
CPT/HCPCS: 36415; 70450; 70553; 80053; 81001; 84703; 85025; 87040; 96365; 96366; 96367; 96372; 96375; 99285; A9577; J0696; J1885; J2060; J2550; J3490; J7030

== ENCOUNTER 2023-03-26 09:28 | Outpatient (RCR) | payer OTHER, SELFPAY | END 2023-04-14 23:59 | disposition home or self-care (01) | LOC: SPT 09:28 | PROVIDERS: Visit Provider Psychiatry & Neurology Neurology | DX: I63.9 Cerebral infarction, unspecified (principal); R53.1 Weakness | CPT/HCPCS: 97110; 97112; 97140; 97163 ==

== ENCOUNTER 2023-03-31 13:00 | Outpatient (RCR) | payer OTHER, SELFPAY | END 2023-04-14 23:59 | disposition home or self-care (01) | LOC: SOT 13:00 | PROVIDERS: Visit Provider Psychiatry & Neurology Neurology | DX: I69.30 Unspecified sequelae of cerebral infarction (principal) | CPT/HCPCS: 97167 ==

== ENCOUNTER 2023-04-15 06:00 | Outpatient (RCR) | payer OTHER, SELFPAY | END 2023-04-25 23:59 | disposition home or self-care (01) | LOC: SPT 06:00 | PROVIDERS: Visit Provider Psychiatry & Neurology Neurology | DX: I63.9 Cerebral infarction, unspecified (principal); R53.1 Weakness | CPT/HCPCS: 97110; 97112 ==